=== PATIENT | female | born 1935 | race Caucasian/White ===

== ENCOUNTER 2018-11-02 22:39 | Emergency (ER) | payer MEDICARE ==
[2018-11-03 00:21] LABS: HEMATOCRIT 35.2 % (37.0-47.0); HEMOGLOBIN 11.5 g/dl (12.0-16.0); IMMATURE GRANULOCYTES 0.5 % (0.0-5.0); MEAN CORPUSCULAR HGB 31.7 pG CALC (26.0-32.0); MEAN CORPUSCULAR HGB CONC 32.7 g/L CALC (32.0-36.0); NEUT# 6.61 thou/uL (2.00-7.15); RED BLOOD COUNT 3.63 mill/uL (4.20-5.60); RED CELL DISTRI WIDTH 12.7 % (11.5-15.5)
[2018-11-03 00:49] LABS: ALBUMIN 3.7 g/dL (3.2-5.0); ALKALINE PHOSPHATASE 115 u/l (38-126); ANION GAP 12 (6-22 (CALC)); BILIRUBIN, TOTAL 0.2 mg/dL (0.0-1.4); BUN 17 mg/dL (8-23); BUN/CREATININE RATIO 21 (12-20 (CALC)); CARBON DIOXIDE 27 mmol/l (22-30); CHLORIDE 104 mmol/l (95-108); CREATININE 0.8 mg/dL (0.5-1.0); GFR > 60 ML/MIN (>=60 (CALC)); GFR FOR AFR.AMER. > 60 ML/MIN (>=60 (CALC)); POTASSIUM 3.8 mmol/l (3.5-5.1); SGOT/AST 26 u/l (9-36); SODIUM 139 mmol/l (137-146); TOTAL PROTEIN 6.3 g/dL (6.3-8.2)
[2018-11-03] MEDS ORDERED: ALPRAZOLAM1 MG PO (07:10)
[2018-11-03] MEDS ORDERED: XANAX1 MG PO (07:10)
[2018-11-03] MEDS ORDERED: SERTRALINE25 MG PO (07:11)
[2018-11-03] MEDS ORDERED: LEVOTHYROXIN50 MCG PO (07:11)
[2018-11-03] MEDS ORDERED: DEPAKENE 2250 MG/51 PO (07:13)
[2018-11-03 07:38] VITALS: BP 124/57
== END 2018-11-03 07:38 ==
LOC: ED 22:39
PROVIDERS: Emergency Medicine
DX: R53.1 Weakness (principal); F03.90 Unspecified dementia, unspecified severity, without behavioral disturbance, psychotic disturbance, mood disturbance, and anxiety

== ENCOUNTER 2019-11-15 15:27 | Emergency (ER) | payer MEDICARE ==
[~2019-11-15 15:27] MED LIST: ALPRAZOLAM1 MG PO; DEPAKENE 2250 MG/51 PO; LEVOTHYROXIN50 MCG PO; SERTRALINE25 MG PO; XANAX1 MG PO
[2019-11-15] MEDS ORDERED: MOTRIN400 MG PO (17:40)
[2019-11-15 17:52] VITALS: BP 169/78
== END 2019-11-15 18:47 | disposition home or self-care (01) ==
LOC: ED 15:27
PROC: 2W3DX1Z Immobilization of Left Lower Arm using Splint (ICD-10-PCS; principal; 2019-11-15)
DX: S52.502A Unspecified fracture of the lower end of left radius, initial encounter for closed fracture (principal); F03.90 Unspecified dementia, unspecified severity, without behavioral disturbance, psychotic disturbance, mood disturbance, and anxiety; W19.XXXA Unspecified fall, initial encounter

== ENCOUNTER 2020-11-29 16:46 | Emergency (ER) | payer MEDICARE ==
[~2020-11-29] VITALS: Ht 165.1 cm; Wt 70.0 kg
[~2020-11-29 16:46] MED LIST changes: +MOTRIN400 MG PO
[2020-11-29] MEDS ORDERED: BUSPIRONE5 MG PO (18:01)
[2020-11-29] MEDS ORDERED: KEFLEX500 M1 PO (18:01)
[2020-11-29] MEDS ORDERED: QUETIAPINE FUMA25 MG PO (18:02)
[2020-11-29 18:10] VITALS: BP 168/74
== END 2020-11-29 18:10 | disposition home or self-care (01) ==
LOC: ED 16:46
DX: N39.0 Urinary tract infection, site not specified (principal); F03.90 Unspecified dementia, unspecified severity, without behavioral disturbance, psychotic disturbance, mood disturbance, and anxiety; F41.9 Anxiety disorder, unspecified; F32.9 Major depressive disorder, single episode, unspecified; Z20.828 Contact with and (suspected) exposure to other viral communicable diseases

== ENCOUNTER 2022-12-08 14:14 | Emergency (ER) | payer MEDICARE, OTHER ==
[~2022-12-08] VITALS: Ht 165.1 cm; Wt 65.0 kg
[2022-12-08] VITALS (35 sets, daily range): BP systolic 95–177; BP diastolic 44–104
[~2022-12-08 14:14] MED LIST changes: +BUSPIRONE5 MG PO; +KEFLEX500 M1 PO; +QUETIAPINE FUMA25 MG PO
[2022-12-08 15:50] LABS: BASO% 0.8 % (0-3); EOS% 2.5 % (0-8); HEMATOCRIT 20.9 % (37.0-47.0); IMMATURE GRANULOCYTES 0.1 % (0.0-5.0); LYMPH% 27.4 % (15-41); MEAN CORPUSCULAR HGB 17.5 pG CALC (26.0-32.0); MEAN CORPUSCULAR HGB CONC 25.4 g/dL CAL (32.0-36.0); MONO% 4.9 % (2-13); NEUT# 4.57 thou/uL (2.00-7.15); NEUT% 64.3 % (42-76); RED BLOOD COUNT 3.03 mill/uL (4.20-5.60); RED CELL DISTRI WIDTH 19.6 % (11.5-15.5)
[2022-12-08 15:52] LABS: HEMOGLOBIN 5.3 g/dl (12.0-16.0)
[2022-12-08 16:04] LABS: ALBUMIN 3.5 g/dL (3.2-5.0); ALKALINE PHOSPHATASE 67 u/l (38-126); ANION GAP 8 (6-22 (CALC)); BUN 20 mg/dL (8-23); BUN/CREATININE RATIO 26 (12-20 (CALC)); CARBON DIOXIDE 29 mmol/l (22-30); CHLORIDE 108 mmol/l (95-108); CREATININE 0.8 mg/dL (0.5-1.0); GFR FOR AFR.AMER. > 60 ML/MIN (>=60 (CALC)); GFR OTHER RACES > 60 ML/MIN (>=60 (CALC)); POTASSIUM 3.8 mmol/l (3.5-5.1); SGOT/AST 19 u/l (9-36); SODIUM 140 mmol/l (137-146); TOTAL PROTEIN 7.2 g/dL (6.3-8.2)
[2022-12-08 16:07] LABS: PROTHROMBIN TIME 10.3 SECONDS (9.0-12.5)
== END 2022-12-08 23:20 ==
LOC: ED 14:14
PROVIDERS: Family Medicine
PROC: 30233N1 Transfusion of Nonautologous Red Blood Cells into Peripheral Vein, Percutaneous Approach (ICD-10-PCS; principal; 2022-12-08)
PROC: 30233N1 Transfusion of Nonautologous Red Blood Cells into Peripheral Vein, Percutaneous Approach (ICD-10-PCS; 2022-12-08)
DX: D64.9 Anemia, unspecified (principal); F03.90 Unspecified dementia, unspecified severity, without behavioral disturbance, psychotic disturbance, mood disturbance, and anxiety; F41.9 Anxiety disorder, unspecified; F32.A Depression, unspecified
CPT/HCPCS: J1756; P9016